=== PATIENT | female | born 1990 | race Caucasian/White ===

== ENCOUNTER → 2016-10-09 | Outpatient (CLI) | payer OTHER ==
[2016-10-09 19:27] LABS: THYROID STIMULATING HORMONE 0.04 uIu/ml (0.300-4.500)
== END | disposition home or self-care (01) ==
LOC: C.LAB 17:17
PROVIDERS: ATTEND Internal Medicine Endocrinology, Diabetes & Metabolism
DX: R53.83 Other fatigue (principal)

== ENCOUNTER → 2016-11-07 | Outpatient (CLI) | payer OTHER ==
[2016-11-07 10:13] LABS: BASO % 0.4 %; BASO ABS # 0.04 K/uL (0-0.2); COMPLETE YES; EOS % 2.7 %; HEMATOCRIT 38.8 % (37-47); IG% 0.2 %; LYMPH % 24.8 %; LYMPH ABS # 2.53 K/uL (1.2-3.4); MEAN CELL VOLUME 83.3 fL (80-100); MEAN CORPUSCULAR HEMOGLOBIN 28.1 pg (25-34); MEAN CORPUSCULAR HGB CONC 33.8 g/dl (32-36); MEAN PLATELET VOLUME 9.6 fL (7.4-10.4); MONO % 6.7 %; NEUT % 65.2 %; PLATELET COUNT 367 K/uL (130-400); RED BLOOD COUNT 4.66 M/uL (4.2-5.4); WHITE BLOOD COUNT 10.21 K/uL (4.8-10.8)
[2016-11-07 10:17] LABS: URINE APPEARANCE CLEAR (CLEAR); URINE BILIRUBIN NEG (NEG); URINE COLOR YELLOW; URINE NITRITE NEG (NEG); URINE SPECIFIC GRAVITY 1.021 (1.000-1.030); UROBILINOGEN NEG (NEG); ZZUR CULT IF INDIC CLEAN CATCH NO
[2016-11-07 10:21] LABS: MANUAL MICROSCOPIC REQUIRED? NO; REVIEW REQ? NO
[2016-11-07 10:28] LABS: ALT/SGPT 29 U/L (12-78); BLOOD UREA NITROGEN 14 mg/dl (7-18); CALCIUM 9.1 mg/dl (8.5-10.1); CARBON DIOXIDE 21 mmol/L (21-32); CHLORIDE 107 mmol/L (98-107); GLUCOSE 99 mg/dl (70-99); POTASSIUM 4.3 mmol/L (3.5-5.1); SODIUM 139 mmol/L (136-145)
[2016-11-07 10:39] LABS: ALB/GLOB RATIO 0.8 (0.9-2); ALKALINE PHOSPHATASE 96 U/L (45-117); AST/SGOT 11 U/L (15-37)
[2016-11-07 10:44] LABS: ESTIMATED AVERAGE GLUCOSE 97 mg/dl; HA1C FLAG Normal (Normal)
== END | disposition home or self-care (01) ==
LOC: C.LAB1850 08:22
PROVIDERS: ATTEND Nurse Practitioner Family
DX: Z01.818 Encounter for other preprocedural examination (principal); E04.1 Nontoxic single thyroid nodule; Z13.1 Encounter for screening for diabetes mellitus

== ENCOUNTER → 2017-01-02 | Outpatient (CLI) | payer OTHER | END | disposition home or self-care (01) | LOC: C.PAPS 09:36 | PROVIDERS: ATTEND Obstetrics & Gynecology | DX: Z12.4 Encounter for screening for malignant neoplasm of cervix (principal) ==

== ENCOUNTER → 2017-01-18 | Outpatient (CLI) | payer OTHER ==
[2017-01-18 14:03] LABS: THYROID STIMULATING HORMONE 4.32 uIu/ml (0.300-4.500)
== END | disposition home or self-care (01) ==
LOC: C.LAB1850 12:24
PROVIDERS: ATTEND Surgery Surgical Oncology
DX: E89.0 Postprocedural hypothyroidism (principal)

== ENCOUNTER → 2017-03-20 | Outpatient (CLI) | payer OTHER ==
--- NOTE | 2017-03-20 10:35 | DIAGNOSTIC IMAGING REPORT ---
ABDOMINAL ULTRASOUND, RIGHT UPPER QUADRANT HISTORY: Right upper quadrant abdominal pain. Positive Lema sign. COMPARISON: None. FINDINGS: Liver is sonographically normal. The pancreatic body is normal. The head and tail are partially obscured. The gallbladder is normal. There are no gallstones. There is no biliary ductal dilatation. The common bile duct measures 4 mm in caliber. There is no right hydronephrosis. IMPRESSION: No significant abnormality identified within the right upper quadrant. Electronically signed by: Olman Hwang M.D. 03/20/2017 10:34 AM Dictated Date/Time: 03/20/2017 10:33 AM
[2017-03-20 12:24] LABS: URINE APPEARANCE TURBID (CLEAR); URINE BILIRUBIN NEG (NEG); URINE COLOR YELLOW; URINE EPITHELIAL CELL AUTO >30 /lpf (0-5); URINE NITRITE NEG (NEG); URINE PH 7.5 (4.5-7.5); URINE SPECIFIC GRAVITY 1.022 (1.000-1.030); UROBILINOGEN NEG (NEG)
[2017-03-20 12:28] LABS: MANUAL MICROSCOPIC REQUIRED? NO; REVIEW REQ? NO
[2017-03-20 12:33] LABS: BASO % 0.3 %; BASO ABS # 0.04 K/uL (0-0.2); COMPLETE YES; EOS % 0.6 %; HEMATOCRIT 41.6 % (37-47); IG% 0.3 %; LYMPH ABS # 2.68 K/uL (1.2-3.4); MEAN CELL VOLUME 85.8 fL (80-100); MEAN CORPUSCULAR HGB CONC 32.7 g/dl (32-36); MEAN PLATELET VOLUME 9.5 fL (7.4-10.4); MONO % 5.9 %; NEUT % 71.9 %; PLATELET COUNT 414 K/uL (130-400); RED BLOOD COUNT 4.85 M/uL (4.2-5.4); WHITE BLOOD COUNT 12.78 K/uL (4.8-10.8)
[2017-03-20 12:44] LABS: AMYLASE 40 U/L (25-115); AST/SGOT 15 U/L (15-37); BLOOD UREA NITROGEN 8 mg/dl (7-18); BUN/CREATININE RATIO 11.4 (10-20); CALCIUM 10.2 mg/dl (8.5-10.1); CARBON DIOXIDE 26 mmol/L (21-32); CHLORIDE 104 mmol/L (98-107); CHOLESTEROL 268 mg/dl (0-200); CREATININE 0.72 mg/dl (0.60-1.20); GLUCOSE 94 mg/dl (70-99); POTASSIUM 4.1 mmol/L (3.5-5.1); SODIUM 138 mmol/L (136-145); TRIGLYCERIDES 172 mg/dl (0-150); VERY LOW DENSITY LIPOPROT CALC 34 mg/dl
[2017-03-20 12:53] LABS: ALB/GLOB RATIO 0.8 (0.9-2); ALKALINE PHOSPHATASE 90 U/L (45-117); ALT/SGPT 33 U/L (12-78); CHOLESTEROL/HDL RATIO 4.7; HDL CHOLESTEROL 57 mg/dl; LDL CHOLESTEROL CALCULATED 177 mg/dl
== END | disposition home or self-care (01) ==
LOC: C.ULTR 10:02
PROVIDERS: ATTEND Nurse Practitioner Family
DX: R10.11 Right upper quadrant pain (principal); E89.0 Postprocedural hypothyroidism; E78.1 Pure hyperglyceridemia

== ENCOUNTER → 2017-05-24 | Outpatient (CLI) | payer OTHER ==
[2017-05-24 10:15] LABS: THYROID STIMULATING HORMONE 0.909 uIu/ml (0.300-4.500)
== END | disposition home or self-care (01) ==
LOC: C.LAB1850 08:07
PROVIDERS: ATTEND Internal Medicine Endocrinology, Diabetes & Metabolism
DX: E89.0 Postprocedural hypothyroidism (principal)

== ENCOUNTER → 2017-08-19 | Outpatient (CLI) | payer BC | END | disposition home or self-care (01) | LOC: C.LAB 07:19 | PROVIDERS: ATTEND Obstetrics & Gynecology | DX: Z34.90 Encounter for supervision of normal pregnancy, unspecified, unspecified trimester (principal) ==

== ENCOUNTER → 2017-08-26 | Outpatient (CLI) | payer BC | END | disposition home or self-care (01) | LOC: C.LAB 07:30 | PROVIDERS: ATTEND Obstetrics & Gynecology | DX: Z34.90 Encounter for supervision of normal pregnancy, unspecified, unspecified trimester (principal) ==

== ENCOUNTER → 2017-09-02 | Outpatient (CLI) | payer BC | END | disposition home or self-care (01) | LOC: C.LAB1850 07:25 | PROVIDERS: ATTEND Obstetrics & Gynecology | DX: E55.9 Vitamin D deficiency, unspecified (principal); O02.1 Missed abortion ==

== ENCOUNTER → 2017-10-11 | Outpatient (CLI) | payer OTHER | END | disposition home or self-care (01) | LOC: C.LAB1850 16:54 | DX: O02.1 Missed abortion (principal) ==

== ENCOUNTER → 2017-11-18 | Outpatient (CLI) | payer OTHER | END | disposition home or self-care (01) | LOC: C.LAB1850 12:12 | PROVIDERS: ATTEND Obstetrics & Gynecology | DX: N91.2 Amenorrhea, unspecified (principal) ==

== ENCOUNTER → 2018-01-13 | Outpatient (CLI) | payer OTHER ==
[2018-01-13 09:40] LABS: HEMATOCRIT 37.2 % (37-47); HEMOGLOBIN 12.4 g/dL (12.0-16.0); MEAN CELL VOLUME 84.5 fL (80-100); MEAN CORPUSCULAR HEMOGLOBIN 28.2 pg (25-34); MEAN CORPUSCULAR HGB CONC 33.3 g/dl (32-36); MEAN PLATELET VOLUME 9.9 fL (7.4-10.4); PLATELET COUNT 317 K/uL (130-400); RED CELL DISTRIBUTION WIDTH SD 39.5 fL (36.4-46.3); WHITE BLOOD COUNT 9.32 K/uL (4.8-10.8)
[2018-01-13 09:49] LABS: GLUCOSE,FASTING 95 mg/dl (70-99)
== END | disposition home or self-care (01) ==
LOC: C.LAB1850 07:23
PROVIDERS: ATTEND Obstetrics & Gynecology
DX: N92.6 Irregular menstruation, unspecified (principal)

== ENCOUNTER → 2018-01-24 | Outpatient (CLI) | payer OTHER | END | disposition home or self-care (01) | LOC: C.LAB1850 08:05 | PROVIDERS: ATTEND Obstetrics & Gynecology | DX: E88.81 Metabolic syndrome and other insulin resistance (principal) ==

== ENCOUNTER 2019-05-12 03:29 | Inpatient (IN) ==
[2019-05-12] MEDS ORDERED: OXYTOCIN 30 UNITS/500 ML BAG IV PRN ×3 (03:41→19:30)
--- NOTE | 2019-05-12 04:01 | History & Physical Report ---
Date of Service May 12, 2019 Assessment & Plan (1) Gestational diabetes mellitus (GDM): check blood sugar q 3 hrs (2) Elevated blood pressure affecting , antepartum: First two labs were slightly elevated. Pateint without s/s of pet. Will continue to monitor and obtain labs. (3) with 38 completed weeks gestation: category one fetus (4) PROM (premature rupture of membranes): Allow expectant management for now. Pitocin if indicated. Anticipate . Epidural on demand. History of Present Illness Chief Complaint: leaking fluid Primary Care Provider: Francisco Chacon, NATALI, NICANOR Patient is a with iup at 38 5/7 weeks by 6 week ultrasound who presents to labor and delivery c/o lof, clear at 1:30am. Notes some intermittent contractions. no vb. +fm. complicated by diet controlled gdm (hx of metabolic syndrome and insulin resistance and so automatically treated as gdm, did not test), obesity and hypothyroidism. Hx of Influenza A in November, treated with Tamiflu. Patient denies triplett/vision changes/ruq pain/n/v. Had a boderline bp in the office on Saturday. labs--O+/ab-/pap nl/ri/rprnr/hepb-/hiv-/ panorama low risk/afp neg/ gbs neg AC us have been wnl Allergies Allergy/AdvReac Type Severity Reaction Status Date / Time No Known Drug Allergies Allergy Verified 05/08/19 11:24 Home Medications Home Medications Medication Instructions Recorded Confirmed Type vit-iron fum-folic ac 1 tab PO DAILY 09/28/18 05/08/19 History [ Vitamin] cetirizine [Zyrtec] 10 mg PO DAILY 12/21/18 05/08/19 History levothyroxine [Synthroid] 150 mcg PO DAILY 12/21/18 05/08/19 History Microlet lancets #50 ea 04/21/19 05/08/19 History blood sugar diagnostic strips #10 ea 04/21/19 05/08/19 History urine glucose-ketones test strips #50 ea 04/21/19 05/08/19 History Patient History Medical History Hyperlipidemia Lentigines Morbid obesity Multiple benign nevi Post-surgical hypothyroidism Seborrheic dermatitis No significant past medical history Surgical History H/O thyroidectomy Family History Mother Anxiety Heart disease Grandmother Anxiety Heart disease Colorectal cancer Father Diabetes Hypertension Thyroid cancer Grandmother (Maternal) Diabetes Breast cancer Grandmother (Paternal) Diabetes Aunt Cervical cancer Other No pertinent family history in first degree relatives Social History Preferred Language: Portuguese marital status: current occupational status: employed Feels Safe at Home: Yes Smoking Status: Never smoker OB History g1--08/10, blighted ovum Review of Systems All systems reviewed & are unremarkable except as noted in HPI & below Physical Exam Constitutional: WD/WN, vitals as above Gastrointestinal (Abdomen): soft, gravid, nt Psychiatric: A+Ox3, euthymic affect Genitourinary: sse--+f/n/p sve--3/75/-2 toco--occasional contraction efm--130s wtih mod variability , accels to 160s, no decels Results & Data Vital Signs (Past 12 Hours) Vital Signs Temp Pulse Resp BP 05/12/19 03:54 85 153/96 H 05/12/19 03:43 36.8 C 97 H 18 162/89 H Code Status & VTE Plan VTE Prophylaxis Plan VTE Prophylaxis will be ordered: No
[2019-05-12 04:13] LABS: Hematocrit (blood only) 35.1 % (37-47); Hemoglobin 11.9 g/dL (12.0-16.0); Mean Platelet Volume 10.7 fL (7.4-10.4); Platelet Count 272 K/uL (130-400); RDW Coefficient of Variation 13.6 % (11.5-14.5); RDW Standard Deviation 41.4 fL (36.4-46.3); Red Blood Count 4.18 M/uL (4.2-5.4); White Blood Count 11.04 K/uL (4.8-10.8)
[2019-05-12 04:19] LABS: Mean Corpuscular Hgb Conc 33.9 g/dL (32-36)
[2019-05-12 04:37] LABS: Albumin Level 2.7 gm/dl (3.4-5.0); Calcium 9.4 mg/dl (8.5-10.1); Creatinine Clr Calc Pharmacy 178.8 ml/min; Est GFR (African American) 148.1; Est GFR (Non-African American) 127.8; Potassium 3.8 mmol/L (3.5-5.1)
[2019-05-12 04:40] LABS: Albumin Globulin Ratio 0.6 (0.9-2); Bilirubin,Total 0.4 mg/dl (0.2-1); Globulin 4.4 gm/dl (2.5-4.0); Total Protein 7.1 gm/dl (6.4-8.2)
--- NOTE | 2019-05-12 08:57 | Obstetrical Progress Note ---
Date of Service May 12, 2019 Subjective Feeling some ctx, not regular. Will plan to start pitocin, will allow pt to eat first. Cervix 80/-1. FHT Cat [address] [place] Q 5 Results & Data Vital Signs (Past 12 Hours) Vital Signs Temp Pulse Resp BP 05/12/19 07:06 36.9 C 80 18 138/82 05/12/19 05:31 88 143/75 H 05/12/19 05:29 36.6 C 18 05/12/19 04:19 92 H 131/72 05/12/19 04:04 96 H 125/83 05/12/19 03:54 85 153/96 H 05/12/19 03:43 36.8 C 97 H 18 162/89 H PG Care Time/CCT Total # of Minutes Spent Total Time Spent with Patient: Total time spent is greater than 50% in coordination of care (as documented) at patient's floor/unit and/or counseling patient:
[2019-05-12] MEDS: LACTATED RINGER'S 1,000 ML IV PRN ×2 (09:48→11:34)
[2019-05-12] MEDS ORDERED: ONDANSETRON INJ 2 MG/ML 2 ML VIAL IV PRN ×2 (11:12→11:59)
[2019-05-12] MEDS ORDERED: BUPIVACAINE 0.25% 30 ML VIAL ONE (11:25)
[2019-05-12] MEDS ORDERED: ePHEDrine sulfate 50 MG/ML AMP ONE (11:26)
[2019-05-12] MEDS ORDERED: fentaNYL citrate 100 MCG/2 ML VIAL ONE (11:26)
[2019-05-12] MEDS ORDERED: fentaNYL 2MCG/ML ROPIV 1.25MG/ML 100 ML BAG EPI ONE (11:26)
--- NOTE | 2019-05-12 11:28 | Anesthesiology Consultation ---
Date of Service May 12, 2019 Assessment & Plan (1) Encounter for pre-operative examination: Chart Review Chart Review: Acceptable Risk for Labor Epidural History Height/Weight Height: 5 ft 2 in Weight: 112.491 kg Allergies Allergy/AdvReac Type Severity Reaction Status Date / Time No Known Drug Allergies Allergy Unknown NKA Verified 05/12/19 04:43 Medications Home Medications Medication Instructions Recorded Confirmed Last Taken vit-iron fum-folic ac 1 tab PO DAILY 09/28/18 05/12/19 05/11/19 06:00 [ Vitamin] levothyroxine [Synthroid] See Rx Instructions .ROUTE .COMPLEX 12/21/18 05/12/19 05/11/19 06:30 200mcg Microlet lancets #50 ea 04/21/19 05/08/19 Unknown blood sugar diagnostic strips #10 ea 04/21/19 05/08/19 Unknown urine glucose-ketones test strips #50 ea 04/21/19 05/08/19 Unknown Active Medications Generic Name Dose Route Start Last Admin Trade Name Hiramq PRN Reason Stop Dose Admin Lactated Ringer's 1,000 mls @ 125 mls/hr 05/12/19 03:41 05/12/19 10:34 Lr IV 05/14/19 03:40 125 mls/hr .Q8H PRN Infusion L&D Protocol Protocol Oxytocin 30 units in 500 mls @ 5 mls/hr 05/12/19 09:04 05/12/19 10:58 Pitocin IV 05/14/19 09:03 0.3 units/hr .Q24H PRN 5 mls/hr Labor Induction/Augmentation Titration Protocol 0.3 UNITS/HR Ondansetron HCl 4 mg 05/12/19 11:12 05/12/19 11:24 Zofran IV 06/11/19 11:11 4 mg Q6H PRN Administration Nausea Past Medical History Medical History Hyperlipidemia Lentigines Morbid obesity Multiple benign nevi Post-surgical hypothyroidism Seborrheic dermatitis No significant past medical history Past Family History Family History Mother Anxiety Heart disease Grandmother Anxiety Heart disease Colorectal cancer Father Diabetes Hypertension Thyroid cancer Grandmother (Maternal) Diabetes Breast cancer Grandmother (Paternal) Diabetes Aunt Cervical cancer Other No pertinent family history in first degree relatives Past Surgical History Surgical History H/O thyroidectomy Social History Smoking Status: Never smoker Hx Alcohol Use: No Hx Substance Use: No substance use type: does not use Physical Exam Vital Signs Last Vital Signs Temp 36.9 C 05/12/19 09:42 Pulse 88 05/12/19 11:00 Resp 18 05/12/19 09:42 BP 132/75 05/12/19 11:00 Testing Laboratory Results 05/12/19 03:56 05/12/19 03:56 05/12/19 05/12/19 05/12/19 09:53 07:52 04:25 POC Glucose 109 H 82 88
[2019-05-12] MEDS ORDERED: NALOXONE HCL 0.4 MG/1 ML VIAL/CARP IV PRN (11:59)
[2019-05-12] MEDS ORDERED: fentaNYL 2MCG/ML ROPIV 1.25MG/ML 100 ML BAG EPI PRN (11:59)
[2019-05-12] MEDS ORDERED: ePHEDrine sulfate 50 MG/ML AMP IV PRN (11:59)
[2019-05-12] MEDS ORDERED: NALOXONE HCL 1 MG in SODIUM CHLORIDE 0.9% 1000ML 1,000 ML IV PRN (11:59)
--- NOTE | 2019-05-12 16:15 | Obstetrical Progress Note ---
Date of Service May 12, 2019 Subjective Feeling pressure with ctx. FHT Cat 1 [place] Q 2-3 SVE 7-8/100/-1 Continue to labor. Results & Data Vital Signs (Past 12 Hours) Vital Signs Temp Pulse Resp BP Pulse Ox 05/12/19 16:10 117 H 131/83 05/12/19 16:09 116 H 99 05/12/19 16:04 107 H 100 05/12/19 16:00 18 05/12/19 15:59 106 H 98 05/12/19 15:54 103 H 136/81 98 05/12/19 15:52 37.1 C 18 05/12/19 15:49 126 H 98 05/12/19 15:44 128 H 99 05/12/19 15:39 105 H 140/82 98 05/12/19 15:34 101 H 98 05/12/19 15:30 18 05/12/19 15:29 110 H 98 05/12/19 15:24 102 H 141/85 H 99 05/12/19 15:19 104 H 98 05/12/19 15:14 104 H 99 05/12/19 15:09 116 H 148/89 H 97 05/12/19 15:04 115 H 98 05/12/19 15:00 18 05/12/19 14:59 107 H 98 05/12/19 14:55 106 H 141/85 H 05/12/19 14:54 106 H 98 05/12/19 14:49 103 H 98 05/12/19 14:44 116 H 98 05/12/19 14:40 101 H 143/85 H 05/12/19 14:39 106 H 97 05/12/19 14:34 102 H 97 05/12/19 14:30 18 05/12/19 14:29 89 97 05/12/19 14:24 95 H 146/81 H 98 05/12/19 14:19 94 H 99 05/12/19 14:14 115 H 98 05/12/19 14:09 96 H 145/75 H 98 05/12/19 14:04 84 98 05/12/19 14:00 18 05/12/19 13:59 76 97 05/12/19 13:56 83 142/75 H 05/12/19 13:55 89 147/92 H 05/12/19 13:54 96 H 98 05/12/19 13:50 36.9 C 05/12/19 13:49 81 98 05/12/19 13:44 79 97 05/12/19 13:39 82 135/73 97 05/12/19 13:34 83 98 05/12/19 13:29 82 97 05/12/19 13:25 81 128/67 05/12/19 13:24 80 96 05/12/19 13:19 87 98 05/12/19 13:14 83 97 05/12/19 13:09 90 115/55 L 97 05/12/19 13:07 77 94 05/12/19 13:04 85 95 05/12/19 13:02 74 94 05/12/19 13:00 18 05/12/19 12:59 81 95 05/12/19 12:56 80 94 05/12/19 12:54 74 110/56 L 96 05/12/19 12:49 76 97 05/12/19 12:45 18 05/12/19 12:44 75 98 05/12/19 12:40 71 111/61 05/12/19 12:39 71 97 05/12/19 12:34 78 98 05/12/19 12:30 18 05/12/19 12:29 82 98 05/12/19 12:24 87 98 05/12/19 12:19 88 98 05/12/19 12:15 18 05/12/19 12:14 90 98 05/12/19 12:10 36.9 C 18 05/12/19 12:09 97 H 98 05/12/19 12:08 93 H 132/68 05/12/19 12:06 85 122/64 05/12/19 12:05 18 05/12/19 12:04 95 H 127/65 98 05/12/19 12:02 89 132/69 05/12/19 12:00 80 18 127/64 05/12/19 11:59 86 98 05/12/19 11:58 76 131/63 05/12/19 11:56 95 H 156/68 H 92 05/12/19 11:54 87 144/83 H 98 05/12/19 11:52 76 137/81 05/12/19 11:49 97 H 98 05/12/19 11:44 101 H 98 05/12/19 11:39 97 H 18 99 05/12/19 11:34 97 H 100 05/12/19 11:29 106 H 145/82 H 100 05/12/19 11:00 88 132/75 05/12/19 09:43 85 136/64 05/12/19 09:42 36.9 C 18 05/12/19 08:41 18 05/12/19 07:06 36.9 C 80 18 138/82 05/12/19 05:31 88 143/75 H 05/12/19 05:29 36.6 C 18 05/12/19 04:19 92 H 131/72 PG Care Time/CCT Total # of Minutes Spent Total Time Spent with Patient: Total time spent is greater than 50% in coordination of care (as documented) at patient's floor/unit and/or counseling patient:
--- NOTE | 2019-05-12 17:17 | Obstetrical Progress Note ---
Date of Service May 12, 2019 Subjective Feeling pressure with ctx. FHT Cat 1 [place] Q 2-3 SVE 7-8/100/-1 Continue to labor. Results & Data Vital Signs (Past 12 Hours) Vital Signs Temp Pulse Resp BP Pulse Ox 05/12/19 17:09 110 H 99 05/12/19 17:07 107 H 91 05/12/19 17:04 114 H 68 L 05/12/19 17:01 111 H 91 05/12/19 17:00 36.8 C 20 05/12/19 16:59 111 H 77 L 05/12/19 16:54 106 H 133/63 100 05/12/19 16:49 124 H 100 05/12/19 16:44 122 H 100 05/12/19 16:40 109 H 131/68 05/12/19 16:39 110 H 100 05/12/19 16:34 91 H 100 05/12/19 16:29 94 H 100 05/12/19 16:25 97 H 142/87 H 05/12/19 16:24 117 H 100 05/12/19 16:19 106 H 100 05/12/19 16:14 109 H 98 05/12/19 16:10 117 H 131/83 05/12/19 16:09 116 H 99 05/12/19 16:04 107 H 100 05/12/19 16:00 18 05/12/19 15:59 106 H 98 05/12/19 15:54 103 H 136/81 98 05/12/19 15:52 37.1 C 18 05/12/19 15:49 126 H 98 05/12/19 15:44 128 H 99 05/12/19 15:39 105 H 140/82 98 05/12/19 15:34 101 H 98 05/12/19 15:30 18 05/12/19 15:29 110 H 98 05/12/19 15:24 102 H 141/85 H 99 05/12/19 15:19 104 H 98 05/12/19 15:14 104 H 99 05/12/19 15:09 116 H 148/89 H 97 05/12/19 15:04 115 H 98 05/12/19 15:00 18 05/12/19 14:59 107 H 98 05/12/19 14:55 106 H 141/85 H 05/12/19 14:54 106 H 98 05/12/19 14:49 103 H 98 05/12/19 14:44 116 H 98 05/12/19 14:40 101 H 143/85 H 05/12/19 14:39 106 H 97 05/12/19 14:34 102 H 97 05/12/19 14:30 18 05/12/19 14:29 89 97 05/12/19 14:24 95 H 146/81 H 98 05/12/19 14:19 94 H 99 05/12/19 14:14 115 H 98 05/12/19 14:09 96 H 145/75 H 98 05/12/19 14:04 84 98 05/12/19 14:00 18 05/12/19 13:59 76 97 05/12/19 13:56 83 142/75 H 05/12/19 13:55 89 147/92 H 05/12/19 13:54 96 H 98 05/12/19 13:50 36.9 C 05/12/19 13:49 81 98 05/12/19 13:44 79 97 05/12/19 13:39 82 135/73 97 05/12/19 13:34 83 98 05/12/19 13:29 82 97 05/12/19 13:25 81 128/67 05/12/19 13:24 80 96 05/12/19 13:19 87 98 05/12/19 13:14 83 97 05/12/19 13:09 90 115/55 L 97 05/12/19 13:07 77 94 05/12/19 13:04 85 95 05/12/19 13:02 74 94 05/12/19 13:00 18 05/12/19 12:59 81 95 05/12/19 12:56 80 94 05/12/19 12:54 74 110/56 L 96 05/12/19 12:49 76 97 05/12/19 12:45 18 05/12/19 12:44 75 98 05/12/19 12:40 71 111/61 05/12/19 12:39 71 97 05/12/19 12:34 78 98 05/12/19 12:30 18 05/12/19 12:29 82 98 05/12/19 12:24 87 98 05/12/19 12:19 88 98 05/12/19 12:15 18 05/12/19 12:14 90 98 05/12/19 12:10 36.9 C 18 05/12/19 12:09 97 H 98 05/12/19 12:08 93 H 132/68 05/12/19 12:06 85 122/64 05/12/19 12:05 18 05/12/19 12:04 95 H 127/65 98 05/12/19 12:02 89 132/69 05/12/19 12:00 80 18 127/64 05/12/19 11:59 86 98 05/12/19 11:58 76 131/63 05/12/19 11:56 95 H 156/68 H 92 05/12/19 11:54 87 144/83 H 98 05/12/19 11:52 76 137/81 05/12/19 11:49 97 H 98 05/12/19 11:44 101 H 98 05/12/19 11:39 97 H 18 99 05/12/19 11:34 97 H 100 05/12/19 11:29 106 H 145/82 H 100 05/12/19 11:00 88 132/75 05/12/19 09:43 85 136/64 05/12/19 09:42 36.9 C 18 05/12/19 08:41 18 05/12/19 07:06 36.9 C 80 18 138/82 05/12/19 05:31 88 143/75 H 05/12/19 05:29 36.6 C 18 PG Care Time/CCT Total # of Minutes Spent Total Time Spent with Patient: Total time spent is greater than 50% in co ordination of care (as documented) at patient's floor/unit and/or counseling patient:
--- NOTE | 2019-05-12 17:19 | Obstetrical Progress Note ---
Date of Service May 12, 2019 Subjective Epidural was redosed. FHT 150s mod sarina. +variable decels, not recurrent. [place] Q 2-3 SVE 10/100/+1 Not feeling urge to push - will labor down. Results & Data Vital Signs (Past 12 Hours) Vital Signs Temp Pulse Resp BP Pulse Ox 05/12/19 17:14 104 H 73 L 05/12/19 17:09 110 H 99 05/12/19 17:07 107 H 91 05/12/19 17:04 114 H 68 L 05/12/19 17:01 111 H 91 05/12/19 17:00 36.8 C 20 05/12/19 16:59 111 H 77 L 05/12/19 16:54 106 H 133/63 100 05/12/19 16:49 124 H 100 05/12/19 16:44 122 H 100 05/12/19 16:40 109 H 131/68 05/12/19 16:39 110 H 100 05/12/19 16:34 91 H 100 05/12/19 16:29 94 H 100 05/12/19 16:25 97 H 142/87 H 05/12/19 16:24 117 H 100 05/12/19 16:19 106 H 100 05/12/19 16:14 109 H 98 05/12/19 16:10 117 H 131/83 05/12/19 16:09 116 H 99 05/12/19 16:04 107 H 100 05/12/19 16:00 18 05/12/19 15:59 106 H 98 05/12/19 15:54 103 H 136/81 98 05/12/19 15:52 37.1 C 18 05/12/19 15:49 126 H 98 05/12/19 15:44 128 H 99 05/12/19 15:39 105 H 140/82 98 05/12/19 15:34 101 H 98 05/12/19 15:30 18 05/12/19 15:29 110 H 98 05/12/19 15:24 102 H 141/85 H 99 05/12/19 15:19 104 H 98 05/12/19 15:14 104 H 99 05/12/19 15:09 116 H 148/89 H 97 05/12/19 15:04 115 H 98 05/12/19 15:00 18 05/12/19 14:59 107 H 98 05/12/19 14:55 106 H 141/85 H 05/12/19 14:54 106 H 98 05/12/19 14:49 103 H 98 05/12/19 14:44 116 H 98 05/12/19 14:40 101 H 143/85 H 05/12/19 14:39 106 H 97 05/12/19 14:34 102 H 97 05/12/19 14:30 18 05/12/19 14:29 89 97 05/12/19 14:24 95 H 146/81 H 98 05/12/19 14:19 94 H 99 05/12/19 14:14 115 H 98 05/12/19 14:09 96 H 145/75 H 98 05/12/19 14:04 84 98 05/12/19 14:00 18 05/12/19 13:59 76 97 05/12/19 13:56 83 142/75 H 05/12/19 13:55 89 147/92 H 05/12/19 13:54 96 H 98 05/12/19 13:50 36.9 C 05/12/19 13:49 81 98 05/12/19 13:44 79 97 05/12/19 13:39 82 135/73 97 05/12/19 13:34 83 98 05/12/19 13:29 82 97 05/12/19 13:25 81 128/67 05/12/19 13:24 80 96 05/12/19 13:19 87 98 05/12/19 13:14 83 97 05/12/19 13:09 90 115/55 L 97 05/12/19 13:07 77 94 05/12/19 13:04 85 95 05/12/19 13:02 74 94 05/12/19 13:00 18 05/12/19 12:59 81 95 05/12/19 12:56 80 94 05/12/19 12:54 74 110/56 L 96 05/12/19 12:49 76 97 05/12/19 12:45 18 05/12/19 12:44 75 98 05/12/19 12:40 71 111/61 05/12/19 12:39 71 97 05/12/19 12:34 78 98 05/12/19 12:30 18 05/12/19 12:29 82 98 08/20/19 12:24 87 98 05/12/19 12:19 88 98 05/12/19 12:15 18 05/12/19 12:14 90 98 05/12/19 12:10 36.9 C 18 05/12/19 12:09 97 H 98 05/12/19 12:08 93 H 132/68 05/12/19 12:06 85 122/64 05/12/19 12:05 18 05/12/19 12:04 95 H 127/65 98 05/12/19 12:02 89 132/69 05/12/19 12:00 80 18 127/64 05/12/19 11:59 86 98 05/12/19 11:58 76 131/63 05/12/19 11:56 95 H 156/68 H 92 05/12/19 11:54 87 144/83 H 98 05/12/19 11:52 76 137/81 05/12/19 11:49 97 H 98 05/12/19 11:44 101 H 98 05/12/19 11:39 97 H 18 99 05/12/19 11:34 97 H 100 05/12/19 11:29 106 H 145/82 H 100 05/12/19 11:00 88 132/75 05/12/19 09:43 85 136/64 05/12/19 09:42 36.9 C 18 05/12/19 08:41 18 05/12/19 07:06 36.9 C 80 18 138/82 05/12/19 05:31 88 143/75 H 05/12/19 05:29 36.6 C 18 PG Care Time/CCT Total # of Minutes Spent Total Time Spent with Patient: Total time spent is greater than 50% in coordination of care (as documented) at patient's floor/unit and/or counseling patient:
[2019-05-12] MEDS ORDERED: CARBOPROST TROMETHAMINE 250 MCG/ML AMPUL ONE (18:36)
[2019-05-12] MEDS ORDERED: HYDROCORTISONE ACETATE 25 MG SUPP PR PRN (19:30)
[2019-05-12] MEDS ORDERED: SUPERCREAM 0.870% 15 GM JAR EXT PRN (19:30)
[2019-05-12] MEDS ORDERED: DIPHTHERIA/TETANUS/PERTUSSIS 0.5 ML SYR/VIAL IM ONE (19:30)
[2019-05-12] MEDS ORDERED: CARBOPROST TROMETHAMINE 250 MCG/ML AMPUL IM ONE (19:30)
[2019-05-12] MEDS ORDERED: ACETAMINOPHEN 325 MG TAB PO PRN (19:30)
[2019-05-12] MEDS ORDERED: OXYCODONE/ACETAMINOPHEN 5mg/325mg TAB PO PRN (19:30)
[2019-05-12] MEDS ORDERED: BENZOCAINE 20% AER SPR 82.5 GM CAN EXT PRN (19:30)
--- NOTE | 2019-05-12 19:31 | Delivery Summary ---
Vaginal Delivery Summary Date of Service May 12, 2019 Vaginal Delivery Summary Vaginal Delivery Summary: Pre-delivery diagnoses: 29yo @ 38 /, PROM, GDMA1, hypothyroidism Post-delivery diagnoses: same + first degree perineal laceration Procedure: spontaneous vaginal delivery, repair of 1st degree perineal laceration Surgeon: Ruth Weber DO Complications: none Findings: Viable female . Apgars: . Weight pending, please see nursery records Estimated blood loss: 400ml Description of delivery: The patient progressed to complete with epidural anesthesia. She then began to push. She spontaneously vaginally delivered a viable female from the cephalic presentation. The head delivered in OA position. There was nuchal cord x1, easily reduced. The anterior shoulder delivered, followed by the posterior shoulder, followed by the body. The baby was placed on mother's abdomen and a spontaneous cry was heard. Delayed cord clamping was employed, and the cord was doubly clamped and cut. Cord blood was obtained. The placenta was delivered spontaneously intact with a 3-vessel cord. The uterus and vagina were swept of clots and debris. IV pitocin was given. The uterus was atonic, and one dose of hemabate was given IM, 250mcg. With uterine massage, emptying the bladder with straight catheter, and the IV pitocin, the uterus then became firm. The cervix, vagina, and perineum were inspected and a first degree perineal laceration was noted and repaired in standard fashion with 3-0 vicryl. Excellent hemostasis was observed. The mother and baby are recovering in stable and good condition in the room. Sponge, needle and instrument counts were correct x 2. Ruth Weber DO [facility] [place]
[2019-05-12] MEDS ORDERED: LEVOTHYROXINE SODIUM 175 MCG TABLET PO SCH (20:00)
--- NOTE | 2019-05-12 20:31 | Anesthesia Procedure Note ---
Date of Service May 12, 2019 Anesthesia Post Epidural Note Vital Signs Vital Signs: Temp Pulse Resp BP Pulse Ox 36.8 C 98 H 20 153/71 H 97 05/12/19 18:41 05/12/19 20:26 05/12/19 20:00 05/12/19 20:26 05/12/19 18:54 Notes Mental Status: alert / awake / arousable and participated in evaluation Nausea / Vomiting: adequately controlled Pain: adequately controlled Airway Patency, RR, SpO2: stable & adequate BP & HR: stable & adequate Hydration State: stable & adequate Neuraxial Anesthesia: was administered and sensory block is resolving Anesthetic Complications: no major complications apparent Epidural: Removed without complications and With tip intact
[2019-05-12] MEDS: IBUPROFEN 600 MG TAB PO PRN (20:54)
[2019-05-12] MEDS ORDERED: DiphenhydrAMINE HCL 50 MG/ML VIAL IV STA (21:11)
--- NOTE | 2019-05-12 21:25 | Obstetrical Progress Note ---
Date of Service May 12, 2019 Subjective Called to room by RN to eval site from hemabate injection. Pt reports slightly painful spot on right outer thigh. Erythematous dimpled area, approximately 10cm in diameter. Not hot to touch. No other rashy areas, no difficulty breathing, no chest pain. Feeling well otherwise. Is in the bathroom getting ready to get into shower. Will give dose of 25mg benadryl IV as soon as she is out of the shower and sharri the area to monitor size. Results & Data Vital Signs (Past 12 Hours) Vital Signs Temp Pulse Resp BP Pulse Ox 05/12/19 20:56 97 H 159/76 H 05/12/19 20:41 112 H 156/74 H 05/12/19 20:26 98 H 153/71 H 05/12/19 20:15 102 H 146/64 H 05/12/19 20:11 89 162/72 H 05/12/19 20:00 20 05/12/19 19:56 95 H 137/77 05/12/19 19:41 92 H 140/79 05/12/19 19:26 88 20 156/81 H 05/12/19 19:16 90 136/88 05/12/19 19:11 20 05/12/19 18:56 103 H 20 146/75 H 05/12/19 18:54 103 H 97 05/12/19 18:49 97 H 98 05/12/19 18:44 99 H 98 05/12/19 18:41 36.8 C 93 H 20 147/75 H 05/12/19 18:39 101 H 97 05/12/19 18:34 91 H 97 05/12/19 18:29 97 H 97 05/12/19 18:26 88 144/91 H 05/12/19 18:24 125 H 98 05/12/19 18:20 20 05/12/19 18:19 101 H 98 05/12/19 18:14 114 H 98 05/12/19 18:09 107 H 100 05/12/19 18:04 100 H 100 05/12/19 18:00 20 05/12/19 17:59 95 H 99 05/12/19 17:57 96 H 143/84 H 05/12/19 17:54 92 H 99 05/12/19 17:49 93 H 99 05/12/19 17:44 101 H 100 05/12/19 17:41 108 H 145/80 H 05/12/19 17:39 95 H 99 05/12/19 17:34 115 H 100 05/12/19 17:33 96 H 148/84 H 05/12/19 17:30 20 05/12/19 17:29 98 H 98 05/12/19 17:24 108 H 100 05/12/19 17:19 109 H 100 05/12/19 17:15 36.8 C 20 05/12/19 17:14 104 H 73 L 05/12/19 17:09 110 H 99 05/12/19 17:07 107 H 91 05/12/19 17:04 114 H 68 L 05/12/19 17:01 111 H 91 05/12/19 17:00 36.8 C 20 05/12/19 16:59 111 H 77 L 05/12/19 16:54 106 H 133/63 100 05/12/19 16:49 124 H 100 05/12/19 16:45 20 05/12/19 16:44 122 H 100 05/12/19 16:40 109 H 131/68 05/12/19 16:39 110 H 100 05/12/19 16:34 91 H 100 05/12/19 16:29 94 H 100 05/12/19 16:25 97 H 142/87 H 05/12/19 16:24 117 H 100 05/12/19 16:19 106 H 100 05/12/19 16:14 109 H 98 05/12/19 16:10 117 H 131/83 05/12/19 16:09 116 H 99 05/12/19 16:04 107 H 100 05/12/19 16:00 18 05/12/19 15:59 106 H 98 05/12/19 15:54 103 H 136/81 98 05/12/19 15:52 37.1 C 18 05/12/19 15:49 126 H 98 05/12/19 15:44 128 H 99 05/12/19 15:39 105 H 140/82 98 05/12/19 15:34 101 H 98 05/12/19 15:30 18 05/12/19 15:29 110 H 98 05/12/19 15:24 102 H 141/85 H 99 05/12/19 15:19 104 H 98 05/12/19 15:14 104 H 99 05/12/19 15:09 116 H 148/89 H 97 05/12/19 15:04 115 H 98 05/12/19 15:00 18 05/12/19 14:59 107 H 98 05/12/19 14:55 106 H 141/85 H 05/12/19 14:54 106 H 98 05/12/19 14:49 103 H 98 05/12/19 14:44 116 H 98 05/12/19 14:40 101 H 143/85 H 05/12/19 14:39 106 H 97 05/12/19 14:34 102 H 97 05/12/19 14:30 18 05/12/19 14:29 89 97 05/12/19 14:24 95 H 146/81 H 98 05/12/19 14:19 94 H 99 05/12/19 14:14 115 H 98 05/12/19 14:09 96 H 145/75 H 98 05/12/19 14:04 84 98 05/12/19 14:00 18 05/12/19 13:59 76 97 05/12/19 13:56 83 142/75 H 05/12/19 13:55 89 147/92 H 05/12/19 13:54 96 H 98 05/12/19 13:50 36.9 C 05/12/19 13:49 81 98 05/12/19 13:44 79 97 05/12/19 13:39 82 135/73 97 05/12/19 13:34 83 98 05/12/19 13:29 82 97 05/12/19 13:25 81 128/67 05/12/19 13:24 80 96 05/12/19 13:19 87 98 05/12/19 13:14 83 97 05/12/19 13:09 90 115/55 L 97 05/12/19 13:07 77 94 05/12/19 13:04 85 95 05/12/19 13:02 74 94 05/12/19 13:00 18 05/12/19 12:59 81 95 05/12/19 12:56 80 94 05/12/19 12:54 74 110/56 L 96 05/12/19 12:49 76 97 05/12/19 12:45 18 05/12/19 12:44 75 98 05/12/19 12:40 71 111/61 05/12/19 12:39 71 97 05/12/19 12:34 78 98 05/12/19 12:30 18 05/12/19 12:29 82 98 05/12/19 12:24 87 98 05/12/19 12:19 88 98 05/12/19 12:15 18 05/12/19 12:14 90 98 05/12/19 12:10 36.9 C 18 05/12/19 12:09 97 H 98 05/12/19 12:08 93 H 132/68 05/12/19 12:06 85 122/64 05/12/19 12:05 18 05/12/19 12:04 95 H 127/65 98 05/12/19 12:02 89 132/69 05/12/19 12:00 80 18 127/64 05/12/19 11:59 86 98 05/12/19 11:58 76 131/63 05/12/19 11:56 95 H 156/68 H 92 05/12/19 11:54 87 144/83 H 98 05/12/19 11:52 76 137/81 05/12/19 11:49 97 H 98 05/12/19 11:44 101 H 98 05/12/19 11:39 97 H 18 99 05/12/19 11:34 97 H 100 05/12/19 11:29 106 H 145/82 H 100 05/12/19 11:00 88 132/75 05/12/19 09:43 85 136/64 05/12/19 09:42 36.9 C 18 PG Care Time/CCT Total # of Minutes Spent Total Time Spent with Patient: Total time spent is greater than 50% in coordination of care (as documented) at patient's floor/unit and/or counseling patient:
--- NOTE | 2019-05-13 06:07 | Obstetrical Progress Note ---
Date of Service <Molly Camargo MD - Last Filed: 05/13/19 06:41> May 13, 2019 Assessment & Plan <Molly Camargo MD - Last Filed: 05/13/19 06:41> (1) Status post vaginal delivery: Elroy is a 29 yo on PPD 1 after . -patient with GDM on diet control -has had elevated BP readings during hospital stay (max systolic 167, max diastolic 95) but no Hx of gestational HTN -patient's most recent BPs WNL at 119/75 and 124/80; denies WINTER, vision changes, RUQ pain; we will continue to monitor and consider ordering urine protein/cr ratio - GBS -, Blood Type O+, Rubella immune -patient is doing clinically well encourage ambulation, progress diet as tolerated, provide analgesia as needed, monitor lochia - After discharge will have [address] Paul. Subjective <Molly Camargo MD - Last Filed: 05/13/19 06:41> Ambulation: ambulating normally Voiding: no voiding problems (suárez at the end of urination) Passing Gas:: Yes Diet Tolerance:: regular diet Lochia:: Small Feeding Type:: breast feeding Current Pain Level(1-10): 3 examined at bedside Constitutional: no fever, no chills and no sweats Eyes: no worsening vision Respiratory: no cough and no dyspnea Cardiovascular: no chest pain, no palpitations, no edema and no calf pain Breast: no breast pain Gastrointestinal: + diarrhea/loose stools; no nausea and no vomiting Genitourinary (female): no dysuria and no urinary frequency Neurologic: no headache(s) Physical Exam <Molly Camargo MD - Last Filed: 05/13/19 06:41> Constitutional WD/WN, vitals as above no acute distress Respiratory normal respiratory effort, lungs clear to auscultation does not use accessory muscles Auscultation: no crackles, no rales, no rhonchi, no wheezes and no pleural rub Cardiovascular Rate/Rhythm: regular rate and regular rhythm Heart Sounds: normal S1 and normal S2; no gallop, no murmur and no cardiac rub Extremities: no calf tenderness and no pedal edema Gastrointestinal (Abdomen) Inspection/Auscultation: normal bowel sounds; abdomen not distended Percussion/Palpation: abdomen soft Musculoskeletal Extremities: + lower leg abnormality (Hemabate injection site no longer erythematous and dimpled) Right Genitourinary Uterus: fundus firm, palpable 1 cm below the uterus Results & Data <Molyl Camargo MD - Last Filed: 05/13/19 06:41> Vital Signs (Past 12 Hours) Vital Signs Temp Pulse Pulse Resp BP BP Pulse Ox 05/12/19 23:35 36.7 C 80 18 119/75 05/12/19 22:36 96 H 16 155/95 H 05/12/19 22:00 37.0 C 84 16 167/91 H 05/12/19 21:10 37.1 C 20 05/12/19 20:56 97 H 159/76 H 05/12/19 20:41 112 H 156/74 H 05/12/19 20:26 98 H 153/71 H 05/12/19 20:15 102 H 146/64 H 05/12/19 20:11 89 162/72 H 05/12/19 20:00 20 05/12/19 19:56 95 H 137/77 05/12/19 19:41 92 H 140/79 05/12/19 19:26 88 20 156/81 H 05/12/19 19:16 90 136/88 05/12/19 19:11 20 05/12/19 18:56 103 H 20 146/75 H 05/12/19 18:54 103 H 97 05/12/19 18:49 97 H 98 05/12/19 18:44 99 H 98 05/12/19 18:41 36.8 C 93 H 20 147/75 H 05/12/19 18:39 101 H 97 05/12/19 18:34 91 H 97 05/12/19 18:29 97 H 97 05/12/19 18:26 88 144/91 H 05/12/19 18:24 125 H 98 05/12/19 18:20 20 05/12/19 18:19 101 H 98 05/12/19 18:14 114 H 98 05/12/19 18:09 107 H 100 <Ruth Weber DO - Last Filed: 05/13/19 08:41> Co-Signing Physician Notes Resident Physician Supervision Note: I was present with Dr. Camargo during the history and exam. I discussed the case with the resident and agree with the findings and plan as documented in the note. Any exceptions or clarifications are listed here: PPD#1 doing well. Red area from hemabate injection has resolved. Routine care. Documented By: Ruth Weber DO Resident Activity Tracking <Molly Camargo MD - Last Filed: 05/13/19 06:41> Resident Involvement: Resident Care Provided Care Provided: OB Delivery
[2019-05-13] MEDS: IBUPROFEN 600 MG TAB PO PRN ×2 (06:21→14:20)
[2019-05-13] MEDS ORDERED: LEVOTHYROXINE SODIUM 200 MCG TABLET PO SCH (06:30)
[2019-05-13 06:35] LABS: Hematocrit (blood only) 32.2 % (37-47); Hemoglobin 10.5 g/dL (12.0-16.0); Mean Corpuscular Hgb Conc 32.6 g/dL (32-36); Mean Corpuscular Volume 84.7 fL (80-100); Mean Platelet Volume 9.8 fL (7.4-10.4); Platelet Count 231 K/uL (130-400); RDW Coefficient of Variation 13.9 % (11.5-14.5); RDW Standard Deviation 42.9 fL (36.4-46.3)
[2019-05-13] MEDS: PRENATAL VITAMIN 1 TAB PO SCH (08:52)
[2019-05-13] MEDS: DOCUSATE SODIUM 100 MG CAP PO SCH ×2 (08:53→20:12)
[2019-05-13] MEDS ORDERED: BISACODYL 5 MG TABEC PO SCH (20:00)
[2019-05-14] MEDS: IBUPROFEN 600 MG TAB PO PRN ×3 (00:03→15:59)
[2019-05-14] MEDS ORDERED: BISACODYL 10 MG SUPP PR PRN (06:00)
--- NOTE | 2019-05-14 07:07 | Obstetrical Progress Note ---
Date of Service <Molly Camargo MD - Last Filed: 05/14/19 07:07> May 14, 2019 Assessment & Plan <Molly Camargo MD - Last Filed: 05/14/19 07:07> (1) Status post vaginal delivery: Elroy is a 29 yo on PPD 2 after . - complicated by GDM on diet control -patient has had elevated BP readings during hospital stay (max systolic 167, max diastolic 95) but no Hx of gestational HTN -patient's most recent BPs WNL at 121/78; denies WINTER, vision changes, RUQ pain; low suspicion for pre-eclampsia - GBS -, Blood Type O+, Rubella immune -patient is doing clinically well discharge instructions reviewed. ready for d/c. patient encouraged to schedule nurse's visit in one week for BP check - After discharge will have [address] Paul. Subjective <Molly Camargo MD - Last Filed: 05/14/19 07:07> Ambulation: ambulating normally Voiding: no voiding problems Passing Gas:: Yes Diet Tolerance:: regular diet Lochia:: Small Feeding Type:: breast feeding Current Pain Level(1-10): 2 examined at bedside Constitutional: no fever, no chills and no sweats Gastrointestinal: no nausea and no vomiting Physical Exam <Molly Camargo MD - Last Filed: 05/14/19 07:07> Constitutional WD/WN, vitals as above no acute distress Respiratory normal respiratory effort, lungs clear to auscultation does not use accessory muscles Auscultation: no crackles, no rales, no rhonchi, no wheezes and no pleural rub Cardiovascular Rate/Rhythm: regular rate and regular rhythm Heart Sounds: normal S1 and normal S2; no gallop, no murmur and no cardiac rub Extremities: no calf tenderness and no pedal edema Gastrointestinal (Abdomen) Inspection/Auscultation: normal bowel sounds; abdomen not distended Percussion/Palpation: abdomen soft Results & Data <Molly Camargo MD - Last Filed: 05/14/19 07:07> Vital Signs (Past 12 Hours) Vital Signs Temp Pulse Resp BP 05/13/19 23:30 36.8 C 84 18 121/78 <Derek Mosquera Jr, MD, FACOG - Last Filed: 05/14/19 08:06> Co-Signing Physician Notes Resident Physician Supervision Note: I was present with Dr. Camargo during the history and exam. I discussed the case with the resident and agree with the findings and plan as documented in the note. Any exceptions or clarifications are listed here: Pt desires d/c. Instructions given, f/u in 6 weeks Documented By: Derek Mosquear Jr, MD, FACOG
[2019-05-14 07:20] LABS: Hematocrit (blood only) 29.7 % (37-47); Hemoglobin 9.8 g/dL (12.0-16.0)
[2019-05-14] MEDS: PRENATAL VITAMIN 1 TAB PO SCH (07:54)
[2019-05-14] MEDS: DOCUSATE SODIUM 100 MG CAP PO SCH (07:54)
== END 2019-05-14 17:10 | disposition home or self-care (01) | DRG 807 ==
LOC: OPB 03:29 → 4S1 03:31 → 4S2 21:30

== ENCOUNTER 2023-09-05 07:52 | Inpatient (IN) ==
[2023-09-05] MEDS ORDERED: OXYTOCIN 30 UNITS/NSS 30 UNITS/500 ML BAG IV PRN ×3 (09:04→18:24)
[2023-09-05] MEDS ORDERED: LIDOCAINE 1% LOCAL 20 ML VIAL INFIL PRN (09:04)
--- NOTE | 2023-09-05 09:10 | History & Physical Report ---
Date of Service September 05, 2023 Assessment & Plan (1) Insulin controlled gestational diabetes mellitus (GDM) during : Plan: Admit to L&D. EFM/toco. Labs. Hourly glucose checks, will initiate insulin protocol if needed. Plan for pitocin, AROM when able. OK for epidural when desires. Admission and Anticipated Discharge Date Admission Date: September 05, 2023 History of Present Illness Chief Complaint: IOL Primary Care Provider: Vasile Bess, DO 33yo @ 41 11/27, IOL. Hypothyroid *Check TFTs Q4wks BMI 50 *Growth US at 32wks *NSTs at 34wks weekly BMI 50 or greater schedule anatomy with M C *BMI 40 or above offer delivery by EDC. GDM on insulin *Wkly NSTs @32wks and Twice wkly @36wks *Serial growth US @28wks *Deliver by EDC - IOL for 09/05/23 Allergies Allergy/AdvReac Type Severity Reaction Status Date / Time No Known Drug Allergies Allergy Unknown NKA Verified 09/04/23 11:47 Home Medications Medication Instructions Recorded Confirmed Type cetirizine 10 mg capsule (Zyrtec) 10 mg PO DAILY 10/17/21 09/05/23 History ketoconazole 2 % shampoo 1 applic topical Q14D #120 mL 10/23/21 09/05/23 Rx prenat.vits,mackenzie,[id number] 1 tab PO DAILY 01/18/23 09/05/23 History acetone (urine) test (Ketone Urine #50 ea 03/01/23 09/04/23 Rx Test strips) blood sugar diagnostic (OneTouch #150 ea 03/01/23 09/04/23 Rx Verio test strips) blood-glucose meter (OneTouch #1 ea 03/01/23 09/04/23 Rx Verio Reflect Meter) lancets 33 gauge (OneTouch Delica #150 ea 03/01/23 09/04/23 Rx Lancets) levothyroxine 200 mcg tablet 200 mcg PO .COMPLEX #30 tabs 03/08/23 09/05/23 Rx levothyroxine 25 mcg tablet 25 mcg PO .COMPLEX #90 tabs 05/20/23 09/05/23 Rx insulin NPH isoph U-100 human 100 48 unit (0.48 mL) subcut QPM #30 mL 07/31/23 09/05/23 Rx unit/mL (3 mL) subcutaneous pen (Novolin N FlexPen) sertraline 100 mg tablet 100 mg PO DAILY 09/05/23 09/05/23 History Patient History Medical History Varicella vaccination Encounter for IUD removal Menstrual disorder Irregular menstrual cycle Gestational diabetes mellitus (GDM) Hyperlipidemia Lentigines Morbid obesity Multiple benign nevi Post-surgical hypothyroidism Seborrheic dermatitis Surgical History S/P wisdom tooth extraction H/O thyroidectomy Family History Mother Anxiety Heart disease Diabetes Grandmother Anxiety Heart disease Colorectal cancer Father Diabetes Hypertension Thyroid cancer Grandmother (Maternal) Diabetes Breast cancer Grandmother (Paternal) Diabetes Aunt Cervical cancer Daughter No problems noted. 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 Beliefs That Will Affect Care: None marital status: marital status details: Steven Thomson (31) [phone] Current Living Situation: Spouse and Family Current Living Situation Comment: lives with spouse, child, cats-spouse changing litter current occupational status: employed 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 [employer]; works with [employer] How many Children do You have: 1 Feels Safe at Home: Yes Childhood Exposure to Second-Hand Smoke: No Diet: regular caffeine: Yes during the past year weight has: remained stable Dental Care, Regularly: No Physical Activity Frequency: 1-2 Times per Week Seatbelt Use: always Sunscreen Use: Yes Assistive Devices: Contacts and Glasses Review of Systems All systems reviewed & are unremarkable except as noted in HPI & below Physical Exam Physical Exam: T Cat 1 [place] rare SVE 3-4/80/-2 Constitutional: WD/WN, vitals as above Respiratory: normal respiratory effort, lungs clear to auscultation no respiratory distress Cardiovascular: Rate/Rhythm: regular rate and regular rhythm Gastrointestinal (Abdomen): Inspection/Auscultation: abdomen normal to inspection Percussion/Palpation: abdomen soft; abdomen nontender Gravid. No s/s chorio or abruption. Skin: no rashes, warm and dry Psychiatric: A+Ox3, euthymic affect Results & Data Vital Signs (Past 12 Hours) Vital Signs Pulse BP 09/05/23 08:54 100 H 09/05/23 08:54 148/88 H 09/05/23 08:39 107 H 140/87 09/05/23 08:25 104 H 138/86 09/05/23 08:06 118 H 155/73 H Coding Level of Care Code None Diagnoses Insulin controlled gestational diabetes mellitus (GDM) during O24.414
[2023-09-05] MEDS: LACTATED RINGER'S 1,000 ML IV PRN ×2 (09:25→15:37)
[2023-09-05 09:27] LABS: Hemoglobin 11.4 g/dl (12.0-16.0); Mean Corpuscular Hemoglobin 27.3 pg (25.0-34.0); Mean Corpuscular Hgb Conc 32.6 g/dL (32.0-36.0); Mean Corpuscular Volume 83.9 fL (80.0-100.0); Mean Platelet Volume 10.8 fL (9.4-12.4); Platelet Count 247 K/uL (130-400); RDW Coefficient of Variation 15.2 % (11.5-14.5); Red Blood Count 4.17 M/uL (4.20-5.40); White Blood Count 10.18 K/ul (4.8-10.8)
[2023-09-05 09:45] LABS: Alanine Aminotransferase 11 U/L (7-52); Albumin Globulin Ratio 1.1 (0.9-2); Albumin Level 3.2 gm/dl (3.4-5.0); Alkaline Phosphatase 195 U/L (34-104); Anion Gap 7 (3-11); Aspartate Aminotransferase 14 U/L (13-39); BUN Creatinine Ratio 18.2 (10-20); Bilirubin,Total 0.3 mg/dl (0.2-1.0); Blood Urea Nitrogen 8 mg/dl (6-23); Calcium 9.3 mg/dl (8.6-10.3); Carbon Dioxide 21 mmol/L (21-32); Chloride 107 mmol/L (98-107); Creatinine Clr Calc Pharmacy 231.2 ml/min; Est GFR (African American) > 150.0 ml/min; Est GFR (Non-African American) 134.5 ml/min; Glucose 82 mg/dl (70-99(Fasting)); Potassium 3.9 mmol/L (3.5-5.1); Sodium 135 mmol/L (136-145); Total Protein 6.2 gm/dl (6.0-8.3)
[2023-09-05] MEDS ORDERED: SODIUM CHLORIDE 0.9% PF INJ 10 ML VIAL ONE (14:42)
[2023-09-05] MEDS ORDERED: fentaNYL citrate PF 100 MCG/2 ML VIAL ONE (14:42)
[2023-09-05] MEDS ORDERED: ePHEDrine sulfate 50 MG/ML AMP ONE (14:42)
[2023-09-05] MEDS ORDERED: fentANYL 2 MCG/ML BUPIVacaine 0.125%-NSS 100ML BAG ONE (14:42)
--- NOTE | 2023-09-05 14:42 | Labor Progress Brief Note ---
Date of Service September 05, 2023 Subjective Comfortable. FHT Cat 1 [place] Q 3 SVE 5-6/80/-1 AROM clear fluid. Continue labor. Desires epidural after AROM. Assessment & Plan Admission and Anticipated Discharge Date Admission Date: September 05, 2023 Results & Data Vital Signs (Past 12 Hours) Vital Signs Temp Pulse Resp BP 09/05/23 12:40 89 09/05/23 12:40 138/79 09/05/23 12:08 81 09/05/23 12:08 138/74 09/05/23 11:24 87 09/05/23 11:24 139/73 09/05/23 11:09 88 09/05/23 11:09 133/67 09/05/23 11:00 20 09/05/23 11:00 36.6 C 20 09/05/23 10:54 94 H 09/05/23 10:54 154/81 H 09/05/23 10:39 97 H 09/05/23 10:39 160/86 H 09/05/23 10:25 90 09/05/23 10:25 153/77 H 09/05/23 10:11 97 H 09/05/23 10:11 150/94 H 09/05/23 09:54 96 H 09/05/23 09:54 154/89 H 09/05/23 09:52 96 H 09/05/23 09:52 144/92 H 09/05/23 09:26 99 H 09/05/23 09:26 158/89 H 09/05/23 09:09 96 H 09/05/23 09:09 154/89 H 09/05/23 08:54 100 H 09/05/23 08:54 148/88 H 09/05/23 08:52 37.0 C 100 H 20 148/88 H 09/05/23 08:39 107 H 140/87 09/05/23 08:25 104 H 138/86 09/05/23 08:06 118 H 09/05/23 08:06 155/73 H 09/05/23 08:06 37.0 C 118 H 20 155/73 H Coding Level of Care Code None
[2023-09-05] MEDS ORDERED: BUPIVACAINE 0.25% PF 30 ML VIAL ONE (14:43)
[2023-09-05] MEDS ORDERED: LIDOCAINE 2%/EPINEPHRINE 1:200,000 20 ML PF ONE (14:43)
[2023-09-05] MEDS ORDERED: BUPIVACAINE 0.25% PF 30 ML VIAL EPI STA (14:45)
[2023-09-05] MEDS ORDERED: diphenhydrAMINE 50 MG/ML VIAL IV PRN (14:45)
[2023-09-05] MEDS ORDERED: SODIUM CHLORIDE 0.9% PF INJ 10 ML VIAL EPI STA (14:45)
[2023-09-05] MEDS ORDERED: fentaNYL citrate PF 100 MCG/2 ML VIAL EPI PRN (14:45)
[2023-09-05] MEDS ORDERED: LIDOCAINE 2%/EPINEPHRINE 1:200,000 20 ML PF EPI STA (14:45)
[2023-09-05] MEDS ORDERED: SODIUM CHLORIDE 0.9% PF INJ 10 ML VIAL EPI PRN (14:45)
[2023-09-05] MEDS ORDERED: NALBUPHINE HCL 5 MG in SYRINGE 0 ML IV PRN (14:45)
[2023-09-05] MEDS ORDERED: fentANYL 2 MCG/ML BUPIVacaine 0.125%-NSS 100ML BAG EPI PRN (14:45)
[2023-09-05] MEDS ORDERED: NALOXONE HCL 1 MG in SODIUM CHLORIDE 0.9% 1,000 ML IV PRN (14:45)
[2023-09-05] MEDS ORDERED: LIDOCAINE 2% MPF LOCAL 5 ML VIAL EPI PRN (14:45)
[2023-09-05] MEDS ORDERED: fentaNYL citrate PF 100 MCG/2 ML VIAL EPI STA (14:45)
[2023-09-05] MEDS ORDERED: BUPIVACAINE 0.25% PF 30 ML VIAL EPI PRN (14:45)
[2023-09-05] MEDS ORDERED: ROPIVACAINE 0.5% PF 5 MG/ML 20 ML VIAL EPI PRN (14:45)
[2023-09-05] MEDS ORDERED: ePHEDrine sulfate 50 MG/ML AMP IV PRN (14:45)
[2023-09-05] MEDS ORDERED: NALOXONE HCL 0.4 MG/1 ML VIAL/CARP IV PRN (14:45)
--- NOTE | 2023-09-05 14:48 | Anesthesiology Consultation ---
Date of Service September 05, 2023 Assessment & Plan Chart Review Chart Review: Patient NOT seen in Pre Admission Testing and Acceptable Risk for Labor Epidural Consults Requested none History Height/Weight Height: 5 ft 2 in Weight: 122.47 kg Allergies Allergy/AdvReac Type Severity Reaction Status Date / Time No Known Drug Allergies Allergy Unknown NKA Verified 09/04/23 11:47 Medications Home Medications Medication Instructions Recorded Confirmed Last Taken cetirizine 10 mg capsule (Zyrtec) 10 mg PO DAILY 10/17/21 09/05/23 09/05/23 ketoconazole 2 % shampoo 1 applic topical Q14D #120 mL 10/23/21 09/05/23 09/05/23 prenat.vits,mackenzie,[id number] 1 tab PO DAILY 01/18/23 09/05/23 09/04/23 acetone (urine) test (Ketone Urine #50 ea 03/01/23 09/04/23 Unknown Test strips) blood sugar diagnostic (OneTouch #150 ea 03/01/23 09/04/23 Unknown Verio test strips) blood-glucose meter (OneTouch #1 ea 03/01/23 09/04/23 Unknown Verio Reflect Meter) lancets 33 gauge (OneTouch Delica #150 ea 03/01/23 09/04/23 Unknown Lancets) levothyroxine 200 mcg tablet 200 mcg PO .COMPLEX #30 tabs 03/08/23 09/05/23 09/05/23 levothyroxine 25 mcg tablet 25 mcg PO .COMPLEX #90 tabs 05/20/23 09/05/23 09/05/23 insulin NPH isoph U-100 human 100 48 unit (0.48 mL) subcut QPM #30 mL 07/31/23 09/05/23 09/04/23 unit/mL (3 mL) subcutaneous pen (Novolin N FlexPen) sertraline 100 mg tablet 100 mg PO DAILY 09/05/23 09/05/23 09/04/23 Active Medications Generic Name Dose Route Start Last Admin Trade Name Freq PRN Reason Stop Dose Admin Oxytocin 30 units in 500 mls @ 13 mls/hr 09/05/23 09:04 09/05/23 13:45 Pitocin 30 Units/Nss IV 09/07/23 09:03 0.78 units/hr .Q24H PRN 13 mls/hr Labor Induction/Augmentation Titration Protocol 0.78 UNITS/HR Lactated Ringer's 1,000 mls @ 125 mls/hr 09/05/23 09:04 09/05/23 09:25 Lr IV 09/07/23 09:03 125 mls/hr .Q8H PRN Administration L&D Protocol Protocol Past Medical History Medical History Varicella vaccination Encounter for IUD removal Menstrual disorder Irregular menstrual cycle Gestational diabetes mellitus (GDM) Hyperlipidemia Lentigines Morbid obesity Multiple benign nevi Post-surgical hypothyroidism Seborrheic dermatitis Past Family History Family History Mother Anxiety Heart disease Diabetes Grandmother Anxiety Heart disease Colorectal cancer Father Diabetes Hypertension Thyroid cancer Grandmother (Maternal) Diabetes Breast cancer Grandmother (Paternal) Diabetes Aunt Cervical cancer Daughter No problems noted. Other No pertinent family history in first degree relatives Denies family history of Colon cancer Ovarian cancer Prostate cancer Myocardial infarction Past Surgical History Surgical History S/P wisdom tooth extraction H/O thyroidectomy Social History Smoking Status: Never smoker Do You Dip or Chew Tobacco: No Hx Alcohol Use: No Hx Substance Use: No substance use type: does not use Physical Exam Vital Signs Last Vital Signs Temp 36.6 C 09/05/23 11:00 Pulse 111 H 09/05/23 14:41 Resp 20 09/05/23 11:00 BP 171/100 H 09/05/23 14:41 Constitutional WD/WN, vitals as above Respiratory normal respiratory effort, lungs clear to auscultation no respiratory distress Cardiovascular Rate/Rhythm: regular rate and regular rhythm Gastrointestinal (Abdomen) Inspection/Auscultation: abdomen normal to inspection Percussion/Palpation: abdomen soft; abdomen nontender Skin no rashes, warm and dry Psychiatric A+Ox3, euthymic affect Testing Laboratory Results 09/05/23 09:11 09/05/23 09:11 Blood Type O Positive 09/05/23 09:11 Antibody Screen NEGATIVE 09/05/23 09:11 09/05/23 09/05/23 09/05/23 13:28 12:05 10:54 POC Glucose 91 79 72
[2023-09-05] MEDS ORDERED: ONDANSETRON INJ 2 MG/ML 2 ML VIAL IV PRN (15:42)
[2023-09-05] MEDS ORDERED: ONDANSETRON INJ 2 MG/ML 2 ML VIAL ONE (15:44)
--- NOTE | 2023-09-05 16:27 | Labor Progress Brief Note ---
Date of Service September 05, 2023 Subjective Comfortable with epidural, does feel some pressure but no urge to push. SVE 8/90/0 FHT Cat 1 [place] Q 2-3 Continue labor. Assessment & Plan Admission and Anticipated Discharge Date Admission Date: September 05, 2023 Results & Data Vital Signs (Past 12 Hours) Vital Signs Temp Pulse Resp BP Pulse Ox 09/05/23 16:24 108 H 09/05/23 16:24 147/87 H 09/05/23 16:22 100 09/05/23 16:22 120 H 09/05/23 16:17 100 09/05/23 16:17 103 H 09/05/23 16:12 100 09/05/23 16:12 100 H 09/05/23 16:09 99 H 09/05/23 16:09 148/81 H 09/05/23 16:07 100 09/05/23 16:07 109 H 09/05/23 16:02 100 09/05/23 16:02 99 H 09/05/23 15:57 100 09/05/23 15:57 95 H 09/05/23 15:52 100 09/05/23 15:52 102 H 09/05/23 15:50 98 H 09/05/23 15:50 153/79 H 09/05/23 15:47 100 09/05/23 15:47 103 H 09/05/23 15:45 104 H 09/05/23 15:45 144/82 H 09/05/23 15:42 100 09/05/23 15:42 116 H 09/05/23 15:42 142/91 H 09/05/23 15:37 100 09/05/23 15:37 118 H 09/05/23 15:36 108 H 09/05/23 15:36 157/86 H 09/05/23 15:32 100 09/05/23 15:32 105 H 09/05/23 15:30 101 H 09/05/23 15:30 156/83 H 09/05/23 15:28 103 H 09/05/23 15:28 166/91 H 09/05/23 15:27 100 09/05/23 15:27 106 H 09/05/23 15:26 104 H 09/05/23 15:26 159/93 H 09/05/23 15:24 95 H 09/05/23 15:24 152/87 H 09/05/23 15:22 100 09/05/23 15:22 101 H 09/05/23 15:22 98 H 09/05/23 15:22 148/82 H 09/05/23 15:18 103 H 09/05/23 15:18 181/94 H 09/05/23 15:17 100 09/05/23 15:17 99 H 09/05/23 15:12 100 09/05/23 15:12 107 H 09/05/23 15:07 100 09/05/23 15:07 98 H 09/05/23 15:02 100 09/05/23 15:02 99 H 09/05/23 14:52 104 H 09/05/23 14:52 172/90 H 09/05/23 14:41 111 H 09/05/23 14:41 171/100 H 09/05/23 12:40 89 09/05/23 12:40 138/79 09/05/23 12:08 81 09/05/23 12:08 138/74 09/05/23 11:24 87 09/05/23 11:24 139/73 09/05/23 11:09 88 09/05/23 11:09 133/67 09/05/23 11:00 20 09/05/23 11:00 36.6 C 20 09/05/23 10:54 94 H 09/05/23 10:54 154/81 H 09/05/23 10:39 97 H 09/05/23 10:39 160/86 H 09/05/23 10:25 90 09/05/23 10:25 153/77 H 09/05/23 10:11 97 H 09/05/23 10:11 150/94 H 09/05/23 09:54 96 H 09/05/23 09:54 154/89 H 09/05/23 09:52 96 H 09/05/23 09:52 144/92 H 09/05/23 09:26 99 H 09/05/23 09:26 158/89 H 09/05/23 09:09 96 H 09/05/23 09:09 154/89 H 09/05/23 08:54 100 H 09/05/23 08:54 148/88 H 09/05/23 08:52 37.0 C 100 H 20 148/88 H 09/05/23 08:39 107 H 140/87 09/05/23 08:25 104 H 138/86 09/05/23 08:06 118 H 09/05/23 08:06 155/73 H 09/05/23 08:06 37.0 C 118 H 20 155/73 H Coding Level of Care Code None
--- NOTE | 2023-09-05 18:18 | Delivery Summary ---
Vaginal Delivery Summary Date of Service September 05, 2023 Vaginal Delivery Summary Vaginal Delivery Summary: Pre-delivery diagnoses: 33yo @ 39 3/7, GDMA2, IOL, obesity, hypothyroidism Post-delivery diagnoses: same Procedure:spontaneous vaginal delivery Surgeon: Ruth Weber DO Complications: none Findings: Viable male . Apgars: 7/9 . Weight pending, please see nursery records. Estimated blood loss: 300ml Description of delivery: The patient progressed to complete with epidural anesthesia. She then began to push. She spontaneously vaginally delivered a viable from the cephalic presentation. The head delivered in ANNI posit ion. The anterior shoulder delivered, followed by the posterior shoulder, followed by the body. Nuchal x 1, easily reduced. The baby was placed on mother's abdomen and a spontaneous cry was heard. The cord was doubly clamped and cut at 30 seconds, baby was handed off to nursery team. A segment was retained for cord gases. Cord blood was obtained. The placenta was delivered manually after cord avulsion, spontaneously intact with a 3-vessel cord. The uterus and vagina were swept of clots and debris. IV pitocin was given. The uterus became firm. The cervix, vagina, and perineum were inspected and no lacerations were noted. Excellent hemostasis was observed. The mother and baby are recovering in stable and good condition in the room. Sponge and instrument counts were correct x 2. Ruth Weber DO [facility] Vaginal Delivery Charge Vaginal Delivery Codes: 71130 global code for the antepartum, delivery, and p ost- Delivery Type Details: [facility]
[2023-09-05] MEDS ORDERED: oxyCODONE/ACETAMINOPHEN 5mg/325mg TAB PO PRN (18:24)
[2023-09-05] MEDS ORDERED: LEVOTHYROXINE SODIUM 25 MCG TABLET PO SCH (18:24)
[2023-09-05] MEDS ORDERED: HYDROCORTISONE ACETATE 25 MG SUPP PR PRN (18:24)
[2023-09-05] MEDS ORDERED: bisacodyL 10 MG SUPP PR PRN (18:24)
[2023-09-05] MEDS ORDERED: DIPHTHERIA/TETANUS/PERTUSSIS Vaccine (Tdap, Age 7+yrs) 0.5mL SYR/VL IM ONE (18:24)
[2023-09-05] MEDS ORDERED: ACETAMINOPHEN 325 MG TAB PO PRN (18:24)
[2023-09-05] MEDS ORDERED: BENZOCAINE 20% SPRY 85 APPLN/85 GM CAN EXT PRN (18:24)
--- NOTE | 2023-09-05 18:47 | Anesthesia Procedure Note ---
Date of Service September 05, 2023 Anesthesia Post Epidural Note Vital Signs Vital Signs: Temp Pulse Resp BP Pulse Ox 36.6 C 99 H 20 144/87 H 97 09/05/23 11:00 09/05/23 18:45 09/05/23 11:00 09/05/23 18:45 09/05/23 18:07 Pain Intensity Lower Medial Abdomen: Pain Intensity: 4 Notes Mental Status: alert / awake / arousable and participated in evaluation Nausea / Vomiting: adequately controlled Pain: adequately controlled Airway Patency, RR, SpO2: stable & adequate BP & HR: stable & adequate Hydration State: stable & adequate Neuraxial Anesthesia: was administered and sensory block is resolving Anesthetic Complications: no major complications apparent and Pt Satisfied with anesthetic care Epidural: Removed without complications and With tip intact
[2023-09-05] MEDS: ceFAZolin 1000MG 1,000 MG/7.5 ML SYR IV SCH (19:46)
[2023-09-05] MEDS: IBUPROFEN 600 MG TAB PO PRN (22:13)
[2023-09-05] MEDS: DOCUSATE SODIUM 100 MG CAP PO SCH (22:13)
[2023-09-06] MEDS: ceFAZolin 1000MG 1,000 MG/7.5 ML SYR IV SCH ×2 (03:17→10:34)
--- NOTE | 2023-09-06 06:01 | Obstetrical Progress Note ---
Date of Service September 06, 2023 Assessment & Plan (1) Encounter for care after hospital delivery: Plan -Vital signs reviewed and WNL -HGB reviewed -Blood type O+ -Rubella unknown -Pt doing well clinically -Encourage ambulation -Monitor and control pain with Motrin prn -Monitor lochia -Encourage Admission and Anticipated Discharge Date Admission Date: September 05, 2023 Supervising Physician Co-Signing Physician Notes Resident Physician Supervision Note: I was present with Dr. Jorden Kinney during the history and exam. I discussed the case with the resident and agree with the findings and plan as documented in the note. Any exceptions or clarifications are listed here: PPD#1 doing well. May want to go home. Documented By: Ruth Weber, DO Subjective 33 yo post- day 1 s/p Ambulation: ambulating normally Voiding: no voiding problems Passing Gas:: Yes Diet Tolerance:: regular diet Lochia:: Small Feeding Type:: breast feeding Current Pain Level: Minimal Resting comfortably this AM in NAD. Denies WINTER, CP, SOB, N/V/D, LE pain/swelling. Review of Systems Review of Systems: All systems reviewed & are unremarkable except as noted in HPI & below Physical Exam Physical Exam: General: patient resting comfortably, NAD, non-toxic in appearance, AA&O x 4, answers questions appropriately. Skin: warm, dry, intact HEENT: NC/AT, anicteric sclera, conjunctiva without injection, moist mucus membranes. Heart: +S1/S2, regular, no m/r/g Lungs: equal air entry bilaterally, no rales/rhonchi/wheezes Abd: +BS, soft, NT/ND, uterine fundus firm at umbilicus Ext: warm, no clubbing/cyanosis or edema, Janes's neg. Neuro: nonfocal, patient AA&O x 4, speech intact, no facial droop, moving all extremities on command. Results & Data Vital Signs (Past 12 Hours) Vital Signs Temp Pulse Pulse Resp BP BP BP 09/06/23 03:35 37 C 83 18 124/81 09/05/23 22:00 36.9 C 95 H 18 122/88 09/05/23 20:00 18 09/05/23 20:00 90 09/05/23 20:00 148/81 H 09/05/23 19:45 96 H 09/05/23 19:45 154/87 H 09/05/23 19:30 99 H 09/05/23 19:30 149/88 H 09/05/23 19:15 91 H 09/05/23 19:15 148/81 H 09/05/23 19:00 18 09/05/23 19:00 100 H 09/05/23 19:00 148/82 H 09/05/23 18:45 99 H 18 144/87 H 09/05/23 18:45 99 H 09/05/23 18:45 144/87 H 09/05/23 18:30 97 H 18 140/97 09/05/23 18:30 97 H 09/05/23 18:30 140/97 09/05/23 18:16 111 H 09/05/23 18:16 153/88 H 09/05/23 18:15 111 H 18 153/88 H 09/05/23 18:07 09/05/23 18:07 118 H 09/05/23 18:02 09/05/23 18:02 109 H 09/05/23 18:00 36.9 C 20 Pulse Ox O2 Del Method 09/06/23 03:35 97 Room Air 09/05/23 22:00 98 Room Air 09/05/23 20:00 09/05/23 20:00 09/05/23 20:00 09/05/23 19:45 09/05/23 19:45 09/05/23 19:30 09/05/23 19:30 09/05/23 19:15 09/05/23 19:15 09/05/23 19:00 09/05/23 19:00 09/05/23 19:00 09/05/23 18:45 09/05/23 18:45 09/05/23 18:45 09/05/23 18:30 09/05/23 18:30 09/05/23 18:30 09/05/23 18:16 09/05/23 18:16 09/05/23 18:15 09/05/23 18:07 97 09/05/23 18:07 09/05/23 18:02 98 09/05/23 18:02 09/05/23 18:00 Resident Activity Tracking Resident Involvement: Resident Care Provided Care Provided: OB Delivery
[2023-09-06] MEDS ORDERED: LEVOTHYROXINE SODIUM 75 MCG TABLET PO SCH (06:30)
[2023-09-06 07:08] LABS: Hematocrit (blood only) 33.4 % (37.0-47.0); Hemoglobin 10.9 g/dl (12.0-16.0)
[2023-09-06] MEDS ORDERED: PRENATAL VITAMIN 1 TAB PO SCH (08:00)
[2023-09-06] MEDS: DOCUSATE SODIUM 100 MG CAP PO SCH (08:30)
[2023-09-06] MEDS ORDERED: CETIRIZINE HCL 10 MG TABLET PO SCH (09:00)
[2023-09-06] MEDS ORDERED: SERTRALINE HCL 100 MG TABLET PO SCH (09:00)
[2023-09-06] MEDS: IBUPROFEN 600 MG TAB PO PRN (10:53)
[2023-09-06] MEDS ORDERED: bisacodyL 5 MG TABEC PO SCH (20:00)
== END 2023-09-06 19:15 | disposition home or self-care (01) | DRG 807 ==
LOC: 4S1 07:52 → 4E2 20:33